=== PATIENT | male | born 1970 | race Caucasian/White ===

== ENCOUNTER 2017-08-26 10:45 | Emergency (ER) | payer SELFPAY ==
[2017-08-26 10:45] VITALS: TEMP 36.5
[2017-08-26 11:00] VITALS: O2SAT 97
--- NOTE | 2017-08-26 12:15 | EMERGENCY ROOM VISIT NOTE ---
History Report prepared by Merry: Cleopatra Avila Under the Supervision of: Dr. Jose Salazar M.D. First contact with patient: 11:39 Chief Complaint: ANXIETY Stated Complaint: ANXIETY History of Present Illness The patient is a 46 year old white male with a past medical history of anxiety and depression who presents to the ED with a cc of anxiety beginning around 0300. Positive increased stress. Negative suicidal or homicidal ideation. The patient states that over the past three days he has been increasingly stressed due to his brother. He states that he has been on psychiatric medications for the past 4-5 years after his three year old was murdered. Per nursing notes that the patient arrives via ALS from the [facility]. Nursing notes report that the patient drank alcohol and took Xanax last evening. Nursing staff notes that the [facility] found two empty bottles of Robitussin, an empty bottle of rubbing alcohol, and a bottle of Xanax that is not prescribed to him. Source of History: patient Onset: 0300 Position: other (global) Quality: other (anxiety) Timing: other (persistent) Note: Associated Symptoms: Increased stress Review of Systems See HPI for pertinent positives and negatives. A total of ten systems were reviewed and were otherwise negative. Past Medical & Surgical Medical Problems: (1) Anxiety and depression Family History No pertinent family history stated Social History Smoking Status: Unknown if Ever Smoked Marital Status: Occupation Status: unemployed Current/Historical Medications Scheduled PRN Alprazolam (Xanax), 1 TAB PO DAILY PRN for Anxiety/Agitation Allergies Coded Allergies: No Known Allergies (Unverified , 08/26/17) Physical Exam Vital Signs Date Time Temp Pulse Resp B/P (MAP) Pulse Ox O2 Delivery O2 Flow Rate FiO2 08/26/17 16:48 85 18 151/86 98 08/26/17 14:36 92 20 142/90 97 Room Air 08/26/17 12:33 88 20 133/99 97 Room Air 08/26/17 11:00 97 Room Air 08/26/17 10:55 88 08/26/17 10:45 36.5 92 20 134/84 96 Room Air Physical Exam GENERAL: Awake, alert, well-appearing, NAD, slurred speech. HENT: Normocephalic, atraumatic. EYES: Normal conjunctiva. Sclera non-icteric. NECK: Supple. No nuchal rigidity. FROM. RESPIRATORY: Diffuse wheezing throughout, no rhonchi, crackles CARDIAC: RRR, no MRG ABDOMEN: Soft, NTND, BS+, incisional scar over right lower quadrant. MSK: No chest wall TTP, no LE edema NEURO: GCS 15, CN 2-12 intact, moves all 4s on command SKIN: No rash or jaundice noted. Medical Decision & Procedures Laboratory Results 08/26/17 13:15 Red Blood Count 4.86, Mean Corpuscular Volume 90.9, Mean Corpuscular Hemoglobin 31.5, Mean Corpuscular Hemoglobin Concent 34.6, Mean Platelet Volume 9.4 08/26/17 13:15 Test 08/26/17 13:15 08/26/17 14:20 White Blood Count 8.87 K/uL (4.8-10.8) Red Blood Count 4.86 M/uL (4.7-6.1) Hemoglobin 15.3 g/dL (14.0-18.0) Hematocrit 44.2 % (42-52) Mean Corpuscular Volume 90.9 fL (80-100) Mean Corpuscular Hemoglobin 31.5 pg (25-34) Mean Corpuscular Hemoglobin Concent 34.6 g/dl (32-36) Platelet Count 284 K/uL (130-400) Mean Platelet Volume 9.4 fL (7.4-10.4) RDW Standard Deviation 48.7 fL (36.4-46.3) RDW Coefficient of Variation 14.6 % (11.5-14.5) Neutrophils % (Manual) 27.0 % Lymphocytes % (Manual) 47.0 % Variant Lymphocytes % (manual) 19.1 % Monocytes % (Manual) 3.5 % Eosinophils % (Manual) 1.7 % Basophils % (Manual) 1.7 % (0-2) Neutrophils # (Manual) 2.39 K/uL (1.4-6.5) Total Absolute Neutrophils 2.39 K/uL (1.4-6.5) Lymphocytes # (Manual) 4.17 K/uL (1.2-3.4) Absolute Variant Lymphocytes 1.69 K/uL Total Absolute Lymphocytes 5.86 K/uL (1.2-3.4) Monocytes # (Manual) 0.31 K/uL (0.11-0.59) Eosinophils # (Manual) 0.15 K/uL (0-0.5) Basophils # (Manual) 0.15 K/uL (0-0.2) Red Blood Cell Morphology Unremarkable Anion Gap 4.0 mmol/L (3-11) Estimated GFR () 120.5 Estimated GFR (Non- 104.0 BUN/Creatinine Ratio 11.3 (10-20) Calcium Level 8.3 mg/dl (8.5-10.1) Total Bilirubin 0.2 mg/dl (0.2-1) Direct Bilirubin < 0.1 mg/dl (0-0.2) Aspartate Amino Transf (AST/SGOT) 17 U/L (15-37) Alanine Aminotransferase (ALT/SGPT) 29 U/L (12-78) Alkaline Phosphatase 91 U/L (45-117) Total Protein 7.7 gm/dl (6.4-8.2) Albumin 3.8 gm/dl (3.4-5.0) Thyroid Stimulating Hormone (TSH) 0.684 uIu/ml (0.300-4.500) Salicylates Level 3.4 mg/dl (2.8-20) Acetaminophen Level < 2 ug/ml (10-30) Ethyl Alcohol mg/dL 151.0 mg/dl (0-3) Urine Color YELLOW Urine Appearance CLEAR (CLEAR) Urine pH 5.0 (4.5-7.5) Urine Specific Farrell 1.016 (1.000-1.030) Urine Protein NEG (NEG) Urine Glucose (UA) NEG (NEG) Urine Ketones NEG (NEG) Urine Occult Blood TRACE (NEG) Urine Nitrite NEG (NEG) Urine Bilirubin NEG (NEG) Urine Urobilinogen NEG (NEG) Urine Leukocyte Esterase NEG (NEG) Urine WBC (Auto) 1-5 /hpf (0-5) Urine RBC (Auto) 0-4 /hpf (0-4) Urine Hyaline Casts (Auto) 1-5 /lpf (0-5) Urine Epithelial Cells (Auto) 10-20 /lpf (0-5) Urine Bacteria (Auto) NEG (NEG) Urine Opiates Screen NEG (NEG) Urine Methadone, Qualitative NEG (NEG) Urine Barbiturates NEG (NEG) Urine Phencyclidine (PCP) Level NEG (NEG) Ur Amphetamine/Methamphetamine NEG (NEG) MDMA (Ecstasy) Screen NEG (NEG) Urine Benzodiazepines Screen POS (NEG) Urine Cocaine Metabolite NEG (NEG) Urine Marijuana (THC) NEG (NEG) Laboratory results reviewed by me ED Course 1157: The patient was evaluated in room C6. A complete history and physical exam was performed. 1620: I reevaluated the patient and he is resting comfortably. I discussed the exam findings with him and I discussed the treatment plan. He verbalized complete understanding and agreement. He is ready to go home. Medical Decision Differential diagnosis: Etiologies such as mood disorder, infection, hypoglycemia, electrolyte abnormalities, cardiac sources, intracerebral event, toxicologic, neurologic, as well as others were entertained. The patient is a 46 year old white male with a past medical history of anxiety and depression who presents to the ED with a cc of anxiety beginning around 0300. Patient was seen and evaluated the bedside. Patient does routinely take the Xanax as well as Zoloft. Patient states he's had some worsening anxiety and depression. Patient states that he travels around the country with his blood brother. Patient described that within the history that he has multiple family members that have committed suicide and that his daughter was murdered. Patient was deemed medically cleared with the exception of a positive alcohol level. I did speak with psych stated the patient should be clinically sober by around 3:30 or 4:00 which point they would assess the patient. Patient was then evaluated by the mental health specialist. Upon reevaluation the patient still denied any SI or HI. Given this and the fact that he was medically clear the patient was deemed safe and suitable for outpatient follow-up and treatment. Patient was given a prescription for his Xanax but was told to use it with precautions and only to use as prescribed. He was also counseled on smoking cessation. Patient was agreeable with this. Patient was given strict follow-up, discharge, and return precautions. All questions were answered. Patient was deemed suitable for outpatient follow-up at this time. Patient agreed with the plan of care and was safely discharged home. Medication Reconcilliation Current Medication List: was personally reviewed by me Impression Primary Impression: Acute anxiety Additional Impressions: Intoxication Encounter for smoking cessation counseling Scribe Attestation The scribe's documentation has been prepared under my direction and personally reviewed by me in its entirety. I confirm that the note above accurately reflects all work, treatment, procedures, and medical decision making performed by me. Departure Information Dispostion Home / Self-Care Prescriptions Alprazolam (XANAX) 0.5 Mg Tab 1 TAB PO DAILY Y for Anxiety/Agitation for 14 Days, #14 TAB Prov: Jose Salazar M.D. 08/26/17 Forms HOME CARE DOCUMENTATION FORM, IMPORTANT VISIT INFORMATION Patient Instructions Anxiety Body Response, Anxiety Disorder, ED Smoking Cessation, [facility] Additional Instructions Please return to the emergency department if you have worsening or recurrent symptoms not amenable to at-home treatment. Please call for a follow-up appointment with her primary care physician. Please take your medications as prescribed. If you have other concerns and/or complaints please feel free to also call your primary care physician's office or return the ED for further evaluation, management, and treatment. You may take 600 mg Ibuprofen every 6 hours as needed for pain with food for no more than 2 consecutive days. You may take tylenol 1000 mg every 6 hours as needed for pain. You may take motrin and tylenol separately or at the same time. Take your medications as prescribed. Consider smoking cessation. You have been examined and treated today on an emergency basis only. This is not a substitute for, or an effort to provide, complete comprehensive medical care. It is impossible to recognize and treat all injuries or illnesses in a single emergency department visit. It is therefore important that you follow up closely with [facility], your PCP, and/or your specialist(s). Call as soon as possible for an appointment. Thank you for your time and consideration. I look forward to speaking with you again soon. Please don't hesitate to call us if you have any questions. Problem Qualifiers
[2017-08-26] MEDS ORDERED: LIDOCAINE/EPINEPHRINE 1% 20 ML VIAL ONE (13:01)
[2017-08-26 13:27] LABS: HEMATOCRIT 44.2 % (42-52); MEAN CELL VOLUME 90.9 fL (80-100); MEAN CORPUSCULAR HEMOGLOBIN 31.5 pg (25-34); MEAN CORPUSCULAR HGB CONC 34.6 g/dl (32-36); MEAN PLATELET VOLUME 9.4 fL (7.4-10.4); PLATELET COUNT 284 K/uL (130-400); RED BLOOD COUNT 4.86 M/uL (4.7-6.1); WHITE BLOOD COUNT 8.87 K/uL (4.8-10.8)
[2017-08-26 13:45] LABS: ALT/SGPT 29 U/L (12-78); AST/SGOT 17 U/L (15-37); BLOOD UREA NITROGEN 10 mg/dl (7-18); BUN/CREATININE RATIO 11.3 (10-20); CALCIUM 8.3 mg/dl (8.5-10.1); CARBON DIOXIDE 30 mmol/L (21-32); CHLORIDE 106 mmol/L (98-107); CREATININE 0.86 mg/dl (0.60-1.40); GLUCOSE 89 mg/dl (70-99); POTASSIUM 4.3 mmol/L (3.5-5.1); SODIUM 140 mmol/L (136-145)
[2017-08-26 13:54] LABS: ALKALINE PHOSPHATASE 91 U/L (45-117); THYROID STIMULATING HORMONE 0.684 uIu/ml (0.300-4.500)
[2017-08-26 13:57] LABS: ACETAMINOPHEN < 2 ug/ml (10-30)
[2017-08-26 13:58] LABS: BASO ABS # 0.15 K/uL (0-0.2); BASOPHIL % 1.7 % (0-2); COMPLETE YES; EOSINOPHIL % 1.7 %; LYMPH ABS # 4.17 K/uL (1.2-3.4); VARIANT LYM ABS # 1.69 K/uL; VARIANT LYMPHOCYTE % 19.1 %
[2017-08-26 14:42] LABS: URINE APPEARANCE CLEAR (CLEAR); URINE BILIRUBIN NEG (NEG); URINE COLOR YELLOW; URINE NITRITE NEG (NEG); URINE SPECIFIC GRAVITY 1.016 (1.000-1.030); UROBILINOGEN NEG (NEG)
[2017-08-26 14:43] LABS: MANUAL MICROSCOPIC REQUIRED? NO; REVIEW REQ? NO
[2017-08-26 15:11] LABS: BENZODIAZEPINE, URINE POS (NEG); COCAINE,URINE NEG (NEG); PHENCYCLIDINE, URINE NEG (NEG)
[2017-08-26] MEDS ORDERED: ALPR0.5T PO (16:27)
[2017-08-26 16:48] VITALS: BP 151/86; PULSE 85; O2SAT 98
== END 2017-08-26 16:50 | disposition home or self-care (01) ==
LOC: EDBD 10:45 → C.EDC 10:48
DX: F41.9 Anxiety disorder, unspecified (principal); F10.129 Alcohol abuse with intoxication, unspecified; Y90.6 Blood alcohol level of 120-199 mg/100 ml; Z71.6 Tobacco abuse counseling; F32.9 Major depressive disorder, single episode, unspecified